=== PATIENT | female | born 1985 | race Caucasian/White ===

== ENCOUNTER 2019-10-31 19:54 | Emergency (ER) | payer OTHER ==
[~2019-10-31] VITALS: Ht 172.7 cm; Wt 77.1 kg
[~2019-10-31 19:54] MED LIST: PEPCID20 MG; PRENATAL 19 TA1 EACH PO; PROTONIX40 M1; SYNTHROID75 MCG; SYNTHROID88 MCG PO; [UNRECOGNIZED DRUG - OTHER]
[2019-10-31] MEDS ORDERED: LIORESAL I50 MCG/1 M (20:26)
[2019-10-31] MEDS ORDERED: MUCINEX100 MG (20:27)
== END 2019-10-31 22:48 | disposition home or self-care (01) ==
LOC: ER 19:54
DX: J32.0 Chronic maxillary sinusitis (principal)